=== PATIENT | male | born 1965 | race Asian ===

== ENCOUNTER 2017-03-03 12:47 | Emergency (ER) | payer OTHER ==
[~2017-03-03] VITALS: Ht 172.7 cm; Wt 74.8 kg
--- NOTE | 2017-03-03 12:47 | NUR ---
1245--Patient was BIBA and taken to bed 03 via bruno per EMS.
[2017-03-03 12:50] VITALS: BP 166/117
--- NOTE | 2017-03-03 12:57 | NUR ---
PATIENT IS A 51 YO MALE BIB EMS FROM HOME FOR SUDDEN ONSET OF DIZZINESS. NO LOC,NO NEURO DEFICITS AWAKE AND ALERT.
--- NOTE | 2017-03-03 12:59 | NUR ---
Patient being moved to bed 06 via gurney.
[2017-03-03] MEDS ORDERED: NACL 0.9% 1,000 ML IV SCH (13:15)
[2017-03-03 13:47] LABS: BASOPHILS # (AUTO) 0.2 K/uL (0.00-0.22); BASOPHILS % (AUTO) 4.1 % (0.0-2.0); EOSINOPHILS # (AUTO) 0.2 K/uL (0-0.4); EOSINOPHILS % (AUTO) 4.2 % (0.0-4.0); HEMATOCRIT 45.9 % (36-52); HEMOGLOBIN 15.4 g/dL (12.0-18.0); LYMPHOCYTES % (AUTO) 20.4 % (20.5-51.1); MEAN CORPUSCULAR HEMOGLOBIN 31 pg (27-31); MEAN CORPUSCULAR HGB CONC 34 g/dL (33-37); MEAN CORPUSCULAR VOLUME 94 fL (80-94); MONOCYTES # (AUTO) 0.3 K/uL (0.8-1.0); MONOCYTES % (AUTO) 6.7 % (1.7-9.3); NEUTROPHILS # (AUTO) 3.2 K/uL (1.8-7.7); NEUTROPHILS % (AUTO) 64.6 % (42.2-75.2); PLATELET COUNT (AUTO) 181 K/uL (140-450); RED BLOOD CELL COUNT(AUTO) 4.91 MIL/uL (4.20-6.10); RED CELL DISTRIBUTION WIDTH 11.6 % (11.6-13.7); WHITE BLOOD COUNT (AUTO) 4.9 K/uL (4.8-10.8)
[2017-03-03 13:59] LABS: PROTHROMBIN TIME 10.5 secs (10.8-13.4)
[2017-03-03 14:02] LABS: ALBUMIN 4.1 g/dL (3.4-5.0); ANION GAP 9.7 (8-16); CARBON DIOXIDE 31.7 mmol/L (21-32); CREATININE 1.4 mg/dL (0.7-1.3); POTASSIUM 3.4 mmol/L (3.5-5.1); TOTAL BILIRUBIN 1.2 mg/dL (0.0-1.0)
[2017-03-03 14:04] LABS: BILIRUBIN,URINE NEGATIVE (NEGATIVE); BLOOD, URINE NEGATIVE (NEGATIVE); LEUKOCYTE ESTERASE ,URINE NEGATIVE (NEGATIVE); NITRITE, URINE NEGATIVE (NEGATIVE); UGLUCOSE NEGATIVE (NEGATIVE)
[2017-03-03 14:10] LABS: APPEARANCE,URINE CLEAR (CLEAR); COLOR,URINE YELLOW (YELLOW)
--- NOTE | 2017-03-03 14:33 | NUR ---
PT RESTING ON BED;NO ACUTE DSITRESS NOTED;WILL CONTINUE TO MONITOR PT.
--- NOTE | 2017-03-03 14:54 | NUR ---
Patient discharged with v/s stable. Written and verbal after care instructions given and explained. Patient verbalized understanding. Ambulatory with steady gait. All questions addressed prior to discharge. Advised to follow up with PMD.
[2017-03-03 14:55] VITALS: BP 146/95
== END 2017-03-03 14:54 | disposition home or self-care (01) ==
LOC: MED 12:47
DX: R42 Dizziness and giddiness (principal); E86.0 Dehydration; I10 Essential (primary) hypertension
CPT/HCPCS: 36415; 71010; 80053; 81003; 82550; 82553; 83605; 83880; 84484; 85025; 85610; 85730; 87040; 87086; 93005; 96360; 99285; J7030; Q0092

== ENCOUNTER 2017-11-01 12:00 | Inpatient (IN) | payer OTHER ==
[~2017-11-01] VITALS: Ht 170.2 cm; Wt 80.7 kg
[2017-11-01 12:13] VITALS: BP 142/97
[2017-11-01] MEDS ORDERED: NACL 0.9% 1,000 ML IV SCH (13:45)
[2017-11-01 14:36] LABS: BASOPHILS % (AUTO) 0.5 % (0.0-2.0); EOSINOPHILS # (AUTO) 0.1 K/uL (0-0.4); EOSINOPHILS % (AUTO) 1.8 % (0.0-4.0); HEMATOCRIT 44.2 % (36-52); HEMOGLOBIN 14.7 g/dL (12.0-18.0); LYMPHOCYTES # (AUTO) 1.1 K/uL (2.0-11.5); MEAN CORPUSCULAR HEMOGLOBIN 31 pg (27-31); MEAN CORPUSCULAR HGB CONC 33 g/dL (33-37); MEAN CORPUSCULAR VOLUME 93.1 fL (80-94); MONOCYTES # (AUTO) 0.3 K/uL (0.8-1.0); MONOCYTES % (AUTO) 7.1 % (1.7-9.3); NEUTROPHILS # (AUTO) 3.3 K/uL (1.8-7.7); NEUTROPHILS % (AUTO) 67.6 % (42.2-75.2); PLATELET COUNT (AUTO) 198 K/uL (140-450); RED BLOOD CELL COUNT(AUTO) 4.75 MIL/uL (4.20-6.10); RED CELL DISTRIBUTION WIDTH 12.5 % (11.6-13.7); WHITE BLOOD COUNT (AUTO) 4.8 K/uL (4.8-10.8)
[2017-11-01 14:41] LABS: APPEARANCE,URINE CLEAR (CLEAR); BILIRUBIN,URINE NEGATIVE (NEGATIVE); BLOOD, URINE TRACE-I (NEGATIVE); LEUKOCYTE ESTERASE ,URINE NEGATIVE (NEGATIVE); NITRITE, URINE NEGATIVE (NEGATIVE); PH,URINE 6.5 (5.0-9.0); UGLUCOSE NEGATIVE (NEGATIVE)
[2017-11-01 14:47] LABS: BARBITURATE, URINE NEG. ng/ml (NEG <=200); BENZODIAZEPINE, URINE NEG. ng/mL (NEG <=200); CANNABINOID, URINE NEG. ng/mL (NEG <=50); COCAINE, URINE NEG. ng/mL (NEG <=300); OPIATE, URINE NEG. ng/mL (NEG <=2000); PHENCYCLIDINE SCREEN,URINE NEG. ng/mL (NEG <=25)
[2017-11-01 14:50] LABS: COLOR,URINE STRAW (YELLOW)
[2017-11-01 15:07] LABS: ALBUMIN 4.2 g/dL (3.4-5.0); ANION GAP 10.8 (8-16); CARBON DIOXIDE 27.7 mmol/L (21-32); POTASSIUM 3.5 mmol/L (3.5-5.1); TOTAL BILIRUBIN 1.4 mg/dL (0.0-1.0)
[2017-11-01 15:13] LABS: RBC,URINE 3-10 (FEW) /HPF (0-5); WBC,URINE NONE SEEN /HPF (0-5)
[2017-11-01] MEDS ORDERED: HYDROcodone/APAP 7.5/325 MG 1 TAB PO PRN (18:15)
[2017-11-01] MEDS ORDERED: DOCUSATE SODIUM 100 MG GELCAP PO PRN (18:15)
[2017-11-01] MEDS ORDERED: ACETAMINOPHEN 325 MG TAB PO PRN (18:15)
[2017-11-01] MEDS ORDERED: MECLIZINE 25 MG TAB PO PRN (18:20)
[2017-11-01] MEDS ORDERED: ATOR10TA PO (18:26)
[2017-11-01] MEDS ORDERED: HYDR-3298 PO (18:28)
[2017-11-01 18:59] LABS: CHOL/HDL RATIO 2.3 (1-4.5); FREE T4 (FREE THYROXINE) 0.97 ng/dL (0.76-1.46); MAGNESIUM 2.3 mg/dL (1.8-2.4); PHOSPHORUS 3.1 mg/dL (2.5-4.9); THYROID STIMULATING HORMONE 1.57 uIU/mL (0.34-3.74)
[2017-11-01 20:00] VITALS: BP 138/77
[2017-11-01] MEDS: NACL 0.9% 1,000 ML IV SCH (20:30)
[2017-11-02 00:02] VITALS: BP 115/71
[2017-11-02 04:00] VITALS: BP 129/76
[2017-11-02 07:31] LABS: BASOPHILS % (AUTO) 0.7 % (0.0-2.0); EOSINOPHILS # (AUTO) 0.3 K/uL (0-0.4); EOSINOPHILS % (AUTO) 5.3 % (0.0-4.0); HEMATOCRIT 42.7 % (36-52); HEMOGLOBIN 14.2 g/dL (12.0-18.0); LYMPHOCYTES # (AUTO) 1.2 K/uL (2.0-11.5); LYMPHOCYTES % (AUTO) 25.4 % (20.5-51.1); MEAN CORPUSCULAR HEMOGLOBIN 31 pg (27-31); MEAN CORPUSCULAR HGB CONC 33 g/dL (33-37); MEAN CORPUSCULAR VOLUME 93.7 fL (80-94); MONOCYTES # (AUTO) 0.4 K/uL (0.8-1.0); MONOCYTES % (AUTO) 7.5 % (1.7-9.3); NEUTROPHILS % (AUTO) 61.1 % (42.2-75.2); PLATELET COUNT (AUTO) 185 K/uL (140-450); RED BLOOD CELL COUNT(AUTO) 4.55 MIL/uL (4.20-6.10); RED CELL DISTRIBUTION WIDTH 12.3 % (11.6-13.7); WHITE BLOOD COUNT (AUTO) 4.9 K/uL (4.8-10.8)
[2017-11-02 07:39] LABS: ANION GAP 13.3 (8-16); CREATININE 0.9 mg/dL (0.7-1.3); POTASSIUM 3.3 mmol/L (3.5-5.1)
[2017-11-02 07:53] LABS: MAGNESIUM 2.2 mg/dL (1.8-2.4); PHOSPHORUS 3.3 mg/dL (2.5-4.9)
[2017-11-02 08:00] VITALS: BP 132/87
[2017-11-02 08:28] LABS: T4 (THYROXINE) 6.5 ug/dL (4.5-12.0)
[2017-11-02] MEDS ORDERED: HYDROCHLOROTHIAZIDE 25 MG TAB PO SCH (09:00)
[2017-11-02] MEDS ORDERED: ATORVASTATIN 20 MG TAB PO SCH (09:00)
[2017-11-02] MEDS ORDERED: LOSARTAN 50 MG TAB PO SCH (09:00)
[2017-11-02] MEDS: NACL 0.9% 1,000 ML IV SCH ×2 (09:01→14:15)
[2017-11-02 12:00] VITALS: BP 132/84
[2017-11-02] MEDS ORDERED: ASPI81CT89 PO (13:39)
[2017-11-02] MEDS ORDERED: POTASSIUM CHLORIDE 10 MEQ TABER PO SCH (14:00)
== END 2017-11-02 15:55 | disposition home or self-care (01) | DRG 74 ==
LOC: MED 12:00 → MTU 18:19
PROVIDERS: ADMIT General Practice; ATTEND General Practice
DX: G90.9 Disorder of the autonomic nervous system, unspecified (principal); I10 Essential (primary) hypertension; I45.10 Unspecified right bundle-branch block; E86.0 Dehydration; E78.5 Hyperlipidemia, unspecified; E78.00 Pure hypercholesterolemia, unspecified; T67.5XXA Heat exhaustion, unspecified, initial encounter; X58.XXXA Exposure to other specified factors, initial encounter; Y93.89 Activity, other specified; Y92.89 Other specified places as the place of occurrence of the external cause; Y99.8 Other external cause status; E87.6 Hypokalemia
CPT/HCPCS: 36415; 70450; 71045; 76705; 80048; 80053; 80305; 81001; 82150; 82550; 83036; 83690; 83735; 83880; 84100; 84436; 84439; 84443; 84479; 84484; 85025; 85610; 85730; 93005; 93880; 96360; 97535; 99285; J7030; Q0092

== ENCOUNTER 2020-03-23 21:40 | Emergency (ER) | payer OTHER ==
[~2020-03-23] VITALS: Ht 170.2 cm; Wt 82.6 kg
[~2020-03-23 21:40] MED LIST: ASPI-1822 PO; ATOR10TA PO; HYDR-3298 PO
[2020-03-23 21:44] VITALS: BP 156/93
--- NOTE | 2020-03-23 21:44 | NUR ---
PT TAKEN TO BED 11 WITH ASSIST [facility]. AMBUALTED FROM GURNEY TO BED WITH STEADY AGIT.
--- NOTE | 2020-03-23 21:49 | NUR ---
Dr. Gardiner examining patient.
--- NOTE | 2020-03-23 21:58 | NUR ---
DERMABOND PLACED AT BEDSIDE FOR
--- NOTE | 2020-03-23 21:58 | NUR ---
PT WAS AT HOME AND STARTED SCRATCHING THE BACK OF HIS LEG AND CAUSED A VARICOSE VEIN TO RUPTURE. PT LOST APPROX 50 CC OF BLOOD. [facility] ARRIVED ON SEEN AND PLACED PRESSURE DRESSING. NO ACTIVE BLEEDING AT THS TIME. PT A/O X 4, DENIES ANY WEAKNESS OR DIZZINESS AT THIS TIME. PT PLACED IN BED IN LOWEST POSITION AND SIDERAIL UP X 1. NKA HX - HTN
[2020-03-23 22:10] LABS: BASOPHILS # (AUTO) 0.1 K/uL (0.00-0.22); BASOPHILS % (AUTO) 1.3 % (0.0-2.0); EOSINOPHILS # (AUTO) 0.1 K/uL (0-0.4); EOSINOPHILS % (AUTO) 2.9 % (0.0-4.0); HEMATOCRIT 45.2 % (36-52); HEMOGLOBIN 15.2 g/dL (12.0-18.0); LYMPHOCYTES # (AUTO) 1.6 K/uL (2.0-11.5); LYMPHOCYTES % (AUTO) 33.4 % (20.5-51.1); MEAN CORPUSCULAR HEMOGLOBIN 32 pg (27-31); MEAN CORPUSCULAR HGB CONC 34 g/dL (33-37); MEAN CORPUSCULAR VOLUME 94.7 fL (80-94); MONOCYTES # (AUTO) 0.4 K/uL (0.8-1.0); MONOCYTES % (AUTO) 7.7 % (1.7-9.3); NEUTROPHILS # (AUTO) 2.7 K/uL (1.8-7.7); NEUTROPHILS % (AUTO) 54.7 % (42.2-75.2); PLATELET COUNT (AUTO) 191 K/uL (140-450); RED BLOOD CELL COUNT(AUTO) 4.77 MIL/uL (4.20-6.10); RED CELL DISTRIBUTION WIDTH 12.3 % (11.6-13.7); WHITE BLOOD COUNT (AUTO) 4.9 K/uL (4.8-10.8)
[2020-03-23 22:33] VITALS: BP 145/87
== END 2020-03-23 22:35 | disposition home or self-care (01) ==
LOC: MED 21:40
DX: I83.812 Varicose veins of left lower extremity with pain (principal); I10 Essential (primary) hypertension; Z79.899 Other long term (current) drug therapy
CPT/HCPCS: 12001; 36415; 85025; 99283

== ENCOUNTER 2020-11-05 23:14 | Emergency (ER) | payer OTHER ==
[~2020-11-05] VITALS: Ht 170.2 cm; Wt 81.6 kg
[2020-11-05 23:53] VITALS: BP 178/109
--- NOTE | 2020-11-06 00:15 | NUR ---
55/M C/O DIZZINESS X 2 WEEKS AGO AND HIGH BLOOD PRESSURE TODAY. PT ALSO VERBALIZED OCCASIONAL PAIN ON RIGHT SHOULDER/BACK OF THE HEAD WHICH COMES AND GOES AND LASTS FOR A COUPLE OF MINS. 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 PT DENIES ANY CHEST PAIN, N/V/D, FEVER, CHILLS. RX: LOSARTAN 100MG, NIFEDIPINE 60MG, SIMVASTATIN 20MG. NKDA. PMH: HTN, HIGH CHOLESTEROL.
--- NOTE | 2020-11-06 00:35 | NUR ---
RADIOLOGY AT BEDSIDE
--- NOTE | 2020-11-06 00:49 | NUR ---
EKG PERFORMED AT BEDSIDE. EKG READS SINUS RHYTHM @ 84
[2020-11-06 00:52] LABS: ANION GAP 12.2 (8-16); CARBON DIOXIDE 28.7 mmol/L (21-32); POTASSIUM 3.9 mmol/L (3.5-5.1)
[2020-11-06 00:57] LABS: ALBUMIN 4.1 g/dL (3.4-5.0); TOTAL BILIRUBIN 1.2 mg/dL (0.0-1.0)
[2020-11-06 01:02] LABS: BASOPHILS % (AUTO) 0.5 % (0.0-2.0); EOSINOPHILS # (AUTO) 0.2 K/uL (0-0.4); EOSINOPHILS % (AUTO) 2.9 % (0.0-4.0); HEMOGLOBIN 15.4 g/dL (12.0-18.0); LYMPHOCYTES # (AUTO) 1.3 K/uL (2.0-11.5); LYMPHOCYTES % (AUTO) 22.2 % (20.5-51.1); MEAN CORPUSCULAR HEMOGLOBIN 33 pg (27-31); MEAN CORPUSCULAR HGB CONC 34 g/dL (33-37); MEAN CORPUSCULAR VOLUME 95.4 fL (80-94); MONOCYTES # (AUTO) 0.5 K/uL (0.8-1.0); MONOCYTES % (AUTO) 7.8 % (1.7-9.3); NEUTROPHILS # (AUTO) 3.9 K/uL (1.8-7.7); NEUTROPHILS % (AUTO) 66.6 % (42.2-75.2); PLATELET COUNT (AUTO) 187 K/uL (140-450); RED BLOOD CELL COUNT(AUTO) 4.72 MIL/uL (4.20-6.10); RED CELL DISTRIBUTION WIDTH 12.4 % (11.6-13.7); WHITE BLOOD COUNT (AUTO) 5.9 K/uL (4.8-10.8)
[2020-11-06 02:28] VITALS: BP 146/93
== END 2020-11-06 02:28 | disposition home or self-care (01) ==
LOC: MED 23:14
DX: I10 Essential (primary) hypertension (principal); M25.512 Pain in left shoulder; Z79.899 Other long term (current) drug therapy
CPT/HCPCS: 36415; 71045; 80053; 83690; 84484; 85025; 93005; 99285